=== PATIENT | female | born 1960 | race Caucasian/White ===

== ENCOUNTER 2018-05-11 17:29 | Emergency (ER) | payer MEDICARE ==
[~2018-05-11] VITALS: Ht 157.5 cm; Wt 71.0 kg
--- NOTE | 2018-05-11 18:54 | NUR ---
report recieved from sammie fowler. pt resting on [place]urnorth pole, monitors in place, call light within reach, awaiting erp eval and orders.
[2018-05-11] MEDS ORDERED: DIPHENHYDRAMINE 50 MG/ML, 1ML ONE (19:25)
[2018-05-11] MEDS ORDERED: KETOROLAC 30 MG/1 ML ONE (19:26)
[2018-05-11] MEDS ORDERED: METOCLOPRAMIDE 5 MG/ML, 2ML ONE (19:26)
[2018-05-11] MEDS ORDERED: METOCLOPRAMIDE 5 MG/ML, 2ML IVPush ONE (19:30)
[2018-05-11] MEDS ORDERED: KETOROLAC 30 MG/1 ML IVPush ONE (19:30)
[2018-05-11] MEDS ORDERED: DIPHENHYDRAMINE 50 MG/ML, 1ML IVPush ONE (19:30)
--- NOTE | 2018-05-11 19:38 | NUR ---
iv site started, pt medicated per mar. pt to ct
[2018-05-11 20:45] VITALS: BP 133/75
[2018-05-11] MEDS ORDERED: AMOXICILLIN/CLAV 875-125MG TABLET PO ONE (21:00)
--- NOTE | 2018-05-11 21:02 | NUR ---
PT UP TO RR WITH STEADY GAIT
[2018-05-11] MEDS ORDERED: AMOXICILLIN/CLAV 875-125MG TABLET ONE (21:05)
== END 2018-05-11 21:30 | disposition home or self-care (01) ==
LOC: ED 20:11
DX: J01.20 Acute ethmoidal sinusitis, unspecified (principal); J01.00 Acute maxillary sinusitis, unspecified; G43.909 Migraine, unspecified, not intractable, without status migrainosus; F32.9 Major depressive disorder, single episode, unspecified; I10 Essential (primary) hypertension; E78.00 Pure hypercholesterolemia, unspecified
CPT/HCPCS: 70450; 96374; 96375; 99284; J1200; J1885; J2765